=== PATIENT | male | born 1965 | race Caucasian/White ===

== ENCOUNTER 2019-08-18 19:57 | Emergency (ER) | payer OTHER ==
[~2019-08-18] VITALS: Ht 170.2 cm; Wt 68.0 kg
[2019-08-18 20:55] VITALS: BP 142/92
== END 2019-08-18 20:57 | disposition home or self-care (01) ==
LOC: ER 19:57
DX: F10.129 Alcohol abuse with intoxication, unspecified (principal); Z95.5 Presence of coronary angioplasty implant and graft; Y90.9 Presence of alcohol in blood, level not specified